=== PATIENT | male | born 1950 | race Caucasian/White ===

== ENCOUNTER 2016-06-29 12:58 | Emergency (ER) | payer OTHER ==
[~2016-06-29] VITALS: Ht 170.2 cm; Wt 72.0 kg
[~2016-06-29 12:58] MED LIST: HYDR-5688 PO; MELA3TAB12 PO
[2016-06-29 13:09] VITALS: TEMP 36.9; Ht 170.2 cm; Wt 72.0 kg
[2016-06-29] MEDS ORDERED: IBUPROFEN 600 MG TAB PO STA (13:39)
--- NOTE | 2016-06-29 14:04 | EMERGENCY ROOM VISIT NOTE ---
History First contact with patient: 13:10 Chief Complaint: FALL Stated Complaint: R HIP INJURY FROM FALL THIS MORNING History of Present Illness The patient is a 66 year old male who presents to the Emergency Room with complaints of right hip pain. The patient was at home shoveling snow when he slipped and fell on the ice. He is not certain how he fell but believes he hit the lateral aspect of the right hip. The patient states he did not have any pain prior to the fall. He is able to ambulate with moderate pain. He rates his discomfort a 6/10. He denies striking his head or having loss of consciousness. He denies any nausea or vomiting. He denies any loss of bowel or bladder control, saddle anesthesia, numbness, or weakness in the lower extremities. He denies any low back pain. Review of Systems A 10 system review of systems was completed with positives and pertinent negatives listed in the HPI. Past Medical/Surgical History Medical Problems: (1) Chronic hepatitis (2) Hepatitis C carrier (3) pneumomediastinum (4) Recurrent sinusitis Social History Smoking Status: Never Smoker Alcohol Use: none Marital Status: single Occupation Status: employed Current/Historical Medications No Active Prescriptions or Reported Meds Allergies Coded Allergies: No Known Allergies (Unverified , 06/29/16) Physical Exam Vital Signs Date Time Temp Pulse Resp B/P Pulse Ox O2 Delivery O2 Flow Rate FiO2 06/29/16 14:33 92 20 138/79 96 Room Air 06/29/16 13:09 36.9 101 18 148/77 99 Room Air Physical Exam VITALS: Vitals are noted on the nurse's note and reviewed by myself. Vital signs stable. GENERAL:This is a 66 year old male, in no acute distress, nondiaphoretic, well- developed well-nourished. SKIN: The skin was without rashes, erythema, edema, or bruising. There is no tenting of the skin. Capillary reflex less than 2 seconds. HEAD: Normocephalic atraumatic. EARS: External ears are normal in appearance. EYES: Pupils equal round and reactive to light and accommodation. Conjunctivae without injection, sclerae without icterus. Extraocular movements intact. NOSE: Patent, turbinates without inflammation or discharge. MOUTH: Mucous membranes moist. Tonsils are not enlarged. Pharynx without erythema or exudate. Uvula midline. Airway patent. Tongue does not deviate. NECK: Supple without nuchal rigidity. No JVD. HEART: Regular rate and rhythm without murmurs gallops or rubs. LUNGS: Clear to auscultation bilaterally without wheezes, rales or rhonchi. No retractions or accessory muscle use. ABDOMEN: Positive bowel sounds x 4. Soft, nontender, without masses or organomegaly. MUSCULOSKELETAL: No muscle atrophy, erythema, or edema noted. Full range of motion in all extremities. There is mild tenderness to palpation to the right anterolateral hip. Normal gait. Strength 5/5 throughout. NEURO: Patient was alert and oriented to person place and time. Normal sensation to light and sharp touch. Deep tendon reflexes 2+ throughout. No focal neurological deficits. Medical Decision & Procedures ER Provider Diagnostic Interpretation: [~ rep ct add3]] RIGHT FEMUR 5 VIEWS ROUTINE CLINICAL HISTORY: Right leg pain trauma COMPARISON: None. DISCUSSION: No fractures or dislocations are visualized. There is a subtle nonaggressive area of medullary sclerosis involving the medial distal femur. IMPRESSION: No acute fractures or dislocations identified. PELVIS 1 OR 2 VIEW ROUTINE CLINICAL HISTORY: Pelvic pain status post trauma COMPARISON STUDY: 05/12/2011 FINDINGS: There is no SI joint diastases. There is no symphysis diastases. No acute fractures are visualized. There are mild osteoarthritic changes. Calcifications/ossification projected over the greater trochanter the left hip is felt to be chronic. IMPRESSION: No acute fractures or dislocations identified. Medications Administered Medications (Trade) Dose Ordered Sig/Yahir Route Start Time Stop Time Status Last Admin Dose Admin Ibuprofen (Motrin Tab) 600 mg NOW STAT PO 06/29/16 13:39 06/29/16 13:41 DC 06/29/16 13:44 600 MG ED Course The patient was seen and examined. Previous visits were reviewed. Imaging was obtained as above. There is no evidence for hip fracture or pelvic fracture. The patient may have a hip sprain or hip contusion. He should follow up with orthopedics for further evaluation and management. He should return with worsening symptoms. The patient was also seen and examined by who agrees with the assessment and treatment plan. Medical Decision The differential diagnosis includes fracture, sprain, strain, arthritis, among others. Impression Primary Impression: Fall Additional Impression: Strain of right hip Departure Information Dispostion Home / Self-Care Condition GOOD Prescriptions No Active Prescriptions or Reported Meds Referrals Jake Patrick III, M.D. (PCP) Ruperto Enamorado D.O. Patient Instructions ED Contusion Hip, ED Sprain Hip, [facility] Additional Instructions Ibuprofen 600 mg every 6-8 hours for the next 3-5 days Contact orthopedics to schedule a follow-up appointment for further evaluation and management of your hips Return to the emergency Department with any worsening symptoms Problem Qualifiers Primary Impression: Fall Encounter type: initial encounter Qualified Codes: W19.XXXA - Unspecified fall, initial encounter Additional Impression: Strain of right hip Encounter type: initial encounter Qualified Codes: S76.011A - Strain of muscle, fascia and tendon of right hip, initial encounter
--- NOTE | 2016-06-29 14:07 | DIAGNOSTIC IMAGING REPORT ---
RIGHT FEMUR 5 VIEWS ROUTINE CLINICAL HISTORY: Right leg pain trauma COMPARISON: None. DISCUSSION: No fractures or dislocations are visualized. There is a subtle nonaggressive area of medullary sclerosis involving the medial distal femur. IMPRESSION: No acute fractures or dislocations identified. Electronically signed by: Todd White M.D. 06/29/2016 2:05 PM Dictated Date/Time: 06/29/2016 2:04 PM
--- NOTE | 2016-06-29 14:08 | DIAGNOSTIC IMAGING REPORT ---
PELVIS 1 OR 2 VIEW ROUTINE CLINICAL HISTORY: Pelvic pain status post trauma COMPARISON STUDY: 05/12/2011 FINDINGS: There is no SI joint diastases. There is no symphysis diastases. No acute fractures are visualized. There are mild osteoarthritic changes. Calcifications/ossification projected over the greater trochanter the left hip is felt to be chronic. IMPRESSION: No acute fractures or dislocations identified. Electronically signed by: Todd White M.D. 06/29/2016 2:07 PM Dictated Date/Time: 06/29/2016 2:06 PM
[2016-06-29 14:33] VITALS: BP 138/79; PULSE 92; O2SAT 96
== END 2016-06-29 14:44 | disposition home or self-care (01) ==
LOC: C.EDB 12:59 → C.EDD 14:44
DX: S76.011A Strain of muscle, fascia and tendon of right hip, initial encounter (principal); W00.0XXA Fall on same level due to ice and snow, initial encounter; Y93.H1 Activity, digging, shoveling and raking; Y92.009 Unspecified place in unspecified non-institutional (private) residence as the place of occurrence of the external cause; Y99.8 Other external cause status

== ENCOUNTER 2017-06-25 02:59 | Emergency (ER) | payer OTHER ==
[~2017-06-25] VITALS: Ht 172.7 cm; Wt 76.4 kg
[2017-06-25 03:06] VITALS: TEMP 36.5; Ht 172.7 cm; Wt 76.4 kg
[2017-06-25] MEDS ORDERED: LIDOCAINE HCL 2% VISC SOLN 20 ML UDC PO STA (03:33)
[2017-06-25] MEDS ORDERED: ALUMINUM/MAGNESIUM SUSP 30 ML UDC PO STA (03:33)
[2017-06-25 03:39] LABS: EOS % 2.4 %; HEMATOCRIT 36.4 % (42-52); HEMOGLOBIN 13.1 g/dL (14.0-18.0); IG# 0.01 K/uL (0.00-0.02); LYMPH % 44.8 %; MEAN CELL VOLUME 95.5 fL (80-100); MEAN CORPUSCULAR HEMOGLOBIN 34.4 pg (25-34); MEAN PLATELET VOLUME 10.4 fL (7.4-10.4); MONO % 7.8 %; MONO ABS # 0.33 K/uL (0.11-0.59); NEUT % 44.8 %; PLATELET COUNT 170 K/uL (130-400); RED CELL DISTRIBUTION WIDTH CV 12.7 % (11.5-14.5); RED CELL DISTRIBUTION WIDTH SD 44.2 fL (36.4-46.3); WHITE BLOOD COUNT 4.24 K/uL (4.8-10.8)
[2017-06-25 03:50] LABS: ALBUMIN 3.6 gm/dl (3.4-5.0); ALT/SGPT 64 U/L (12-78); AST/SGOT 32 U/L (15-37); BLOOD UREA NITROGEN 22 mg/dl (7-18); CALCIUM 8.2 mg/dl (8.5-10.1); CARBON DIOXIDE 27 mmol/L (21-32); CREATININE 0.94 mg/dl (0.60-1.40); GLUCOSE 91 mg/dl (70-99); POTASSIUM 3.7 mmol/L (3.5-5.1); SODIUM 139 mmol/L (136-145)
[2017-06-25 04:15] LABS: ALKALINE PHOSPHATASE 63 U/L (45-117); CKMB 1.4 ng/ml (0.5-3.6); TOTAL PROTEIN 7.1 gm/dl (6.4-8.2)
[2017-06-25] MEDS ORDERED: NITROGLYCERIN 0.3 MG/1 TAB 100 TAB BTL SL STA (05:32)
[2017-06-25] MEDS ORDERED: NITROGLYCERIN 0.4 MG SL PER TAB CHARGE ONE (05:41)
[2017-06-25] MEDS ORDERED: NURSING VERBAL MED ORDER ONE (05:45)
[2017-06-25] MEDS ORDERED: KETOROLAC TROMETHAMINE 30 MG/ML VIAL IV STA (06:09)
[2017-06-25] MEDS ORDERED: NITROGLYCERIN 0.4 MG SL PER TAB CHARGE SL STA (06:17)
[2017-06-25] MEDS ORDERED: OPTIRAY 320 IV PRN (07:00)
--- NOTE | 2017-06-25 07:21 | DIAGNOSTIC IMAGING REPORT ---
CHEST COMBO ANGIO DISSECTION CLINICAL HISTORY: Chest pain. Assess for aortic dissection. COMPARISON STUDY: Chest CT May 10, 2011 and chest radiograph June 25, 2017. TECHNIQUE: Unenhanced and arterial phase imaging of the chest was performed. Injection of 93 cc Optiray 320 IV was uneventful. Sagittal and coronal reconstructions were viewed as well as maximal intensity projections on an independent 3-D workstation. FINDINGS: Caliber of the thoracic aorta is normal. There is no intramural hematoma or dissection within the thoracic aorta. Pulmonary arteries are suboptimally opacified to evaluate for pulmonary emboli. There is no large central pulmonary embolus. Size of the heart is at the upper limits of normal. There is no pericardial effusion. No enlarged thoracic lymph nodes are present. A calcified right paratracheal lymph node is noted. Central airways are patent. There is no consolidation to suggest pneumonia. No pneumothorax or pleural effusion is noted. Several tiny pulmonary nodules are unchanged since CT of May 10, 2011 and are benign. No new nodules are present. Upper abdomen is unremarkable with exception of a left renal cyst. A small hiatal hernia is suspected. IMPRESSION: 1. No thoracic aortic dissection. 2. No acute intrathoracic findings. Electronically signed by: Cr Miranda M.D. 06/25/2017 7:20 AM Dictated Date/Time: 06/25/2017 7:11 AM
[2017-06-25 07:44] VITALS: BP 119/72; PULSE 59; O2SAT 99
--- NOTE | 2017-06-25 09:53 | DIAGNOSTIC IMAGING REPORT ---
CHEST ONE VIEW PORTABLE CLINICAL HISTORY: Chest pain. COMPARISON STUDY: Chest radiograph May 11, 2011. FINDINGS: Lung volumes are normal. Lungs are clear. No pneumothorax or pleural effusion is noted. Cardiac size is normal. Mediastinal contours are normal. IMPRESSION: No acute cardiopulmonary findings. Electronically signed by: Cr Miranda M.D. 06/25/2017 9:52 AM Dictated Date/Time: 06/25/2017 9:51 AM
--- NOTE | 2017-06-25 23:10 | EMERGENCY ROOM VISIT NOTE ---
History Report prepared by Paulina: Vivian Hernandez Under the Supervision of: Dr. Azul Harvey D.O. First contact with patient: 03:14 Chief Complaint: CHEST PAIN Stated Complaint: CHEST PAIN Nursing Triage Summary: Patient notes chest pain that woke him out of his sleep [employer]. Patient denies SOB. Pressure pain has been going on for approx. a week. History of Present Illness The patient is a 67 year old male who presents to the Emergency Room with complaints of intermittent chest pain starting a week ago. The patient states that he thought it was heart burn, but it woke him up out of his sleep tonight an hour ago. He states that it is worse at night and seems to mainly go away during the day. He describes the pain as a pressure. The patient complains of abdominal pain. The patient denies shortness of breath, nausea, and diaphoresis. He notes that he had a stress test done in the past that was negative. Source of History: patient Onset: a week ago Position: chest Quality: pressure Timing: intermittent Modifying Factors (Worsening): other (night) Modifying Factors (Relieving): other (day) Associated Symptoms: + abdominal pain, No diaphoresis, No SOB, No nausea Review of Systems See HPI for pertinent positives & negatives. A total of 10 systems reviewed and were otherwise negative. Past Medical & Surgical Medical Problems: (1) Chronic hepatitis (2) Hepatitis C carrier (3) pneumomediastinum (4) Recurrent sinusitis Family History FH: heart attack Social History Smoking Status: Never Smoker Alcohol Use: none Marital Status: single Housing Status: lives alone Occupation Status: employed Current/Historical Medications No Active Prescriptions or Reported Meds Allergies Coded Allergies: No Known Allergies (Unverified , 06/25/17) Physical Exam Vital Signs Date Time Temp Pulse Resp B/P (MAP) Pulse Ox O2 Delivery O2 Flow Rate FiO2 06/25/17 07:44 59 18 119/72 99 06/25/17 07:18 56 06/25/17 07:02 64 18 115/68 98 Room Air 06/25/17 05:43 72 18 119/71 97 Room Air 06/25/17 04:30 117/71 06/25/17 04:29 66 17 97 06/25/17 04:01 116/66 06/25/17 03:59 65 16 98 06/25/17 03:39 114/65 06/25/17 03:29 70 17 99 06/25/17 03:12 69 06/25/17 03:06 36.5 67 18 122/72 99 Room Air 06/25/17 03:06 99 Room Air 06/25/17 03:05 122/72 Physical Exam HEENT: Head - normocephalic and atraumatic Pupils are equal, round, and reactive to light. Extraocular eye muscles are intact, and sclera are anicteric. Nose - moist nasal mucosa without discharge. Mouth - moist buccal mucosa. Oropharynx is nonerythematous and there is no tonsillar exudate or edema noted. Neck: Supple; no JVD, nuchal rigidity, cervical lymphadenopathy, or auscultated bruits. Heart: Regular rate and rhythm. There is a normal S1 and S2 with no murmurs, clicks, or gallops appreciated. Lungs: Clear to auscultation bilaterally with no wheezes, rales, or rhonchi. Abdomen: Soft, completely nontender, nondistended, with good bowel sounds. There are no palpable pulsatile masses or hepatosplenomegaly. There is no guarding, rigidity, or rebound noted. Extremities: No evidence of cyanosis, clubbing, or edema. There are easily palpable peripheral pulses. Skin: warm and dry with good turgor and no rashes. Medical Decision & Procedures ER Provider Diagnostic Interpretation: Radiology results as stated below per my review and the radiologist's interpretation: CHEST COMBO ANGIO DISSECTION CLINICAL HISTORY: Chest pain. Assess for aortic dissection. COMPARISON STUDY: Chest CT May 10, 2011 and chest radiograph June 25, 2017. TECHNIQUE: Unenhanced and arterial phase imaging of the chest was performed. Injection of 93 cc Optiray 320 IV was uneventful. Sagittal and coronal reconstructions were viewed as well as maximal intensity projections on an independent 3-D workstation. FINDINGS: Caliber of the thoracic aorta is normal. There is no intramural hematoma or dissection within the thoracic aorta. Pulmonary arteries are suboptimally opacified to evaluate for pulmonary emboli. There is no large central pulmonary embolus. Size of the heart is at the upper limits of normal. There is no pericardial effusion. No enlarged thoracic lymph nodes are present. A calcified right paratracheal lymph node is noted. Central airways are patent. There is no consolidation to suggest pneumonia. No pneumothorax or pleural effusion is noted. Several tiny pulmonary nodules are unchanged since CT of May 10, 2011 and are benign. No new nodules are present. Upper abdomen is unremarkable with exception of a left renal cyst. A small hiatal hernia is suspected. IMPRESSION: 1. No thoracic aortic dissection. 2. No acute intrathoracic findings. Electronically signed by: Cr Miranda M.D. 06/25/2017 7:20 AM Dictated Date/Time: 06/25/2017 7:11 AM CHEST X-RAY: The results were interpreted by me. No pulmonary infiltrates, no pleural effusion, and no pneumothorax. Laboratory Results 06/25/17 03:20 Red Blood Count 3.81, Mean Corpuscular Volume 95.5, Mean Corpuscular Hemoglobin 34.4, Mean Corpuscular Hemoglobin Concent 36.0, Mean Platelet Volume 10.4, Neutrophils (%) (Auto) 44.8, Lymphocytes (%) (Auto) 44.8, Monocytes (%) (Auto) 7.8, Eosinophils (%) (Auto) 2.4, Basophils (%) (Auto) 0.0, Neutrophils # (Auto) 1.90, Lymphocytes # (Auto) 1.90, Monocytes # (Auto) 0.33, Eosinophils # (Auto) 0.10, Basophils # (Auto) 0.00 06/25/17 03:20 Test 06/25/17 03:20 White Blood Count 4.24 K/uL (4.8-10.8) Red Blood Count 3.81 M/uL (4.7-6.1) Hemoglobin 13.1 g/dL (14.0-18.0) Hematocrit 36.4 % (42-52) Mean Corpuscular Volume 95.5 fL (80-100) Mean Corpuscular Hemoglobin 34.4 pg (25-34) Mean Corpuscular Hemoglobin Concent 36.0 g/dl (32-36) Platelet Count 170 K/uL (130-400) Mean Platelet Volume 10.4 fL (7.4-10.4) Neutrophils (%) (Auto) 44.8 % Lymphocytes (%) (Auto) 44.8 % Monocytes (%) (Auto) 7.8 % Eosinophils (%) (Auto) 2.4 % Basophils (%) (Auto) 0.0 % Neutrophils # (Auto) 1.90 K/uL (1.4-6.5) Lymphocytes # (Auto) 1.90 K/uL (1.2-3.4) Monocytes # (Auto) 0.33 K/uL (0.11-0.59) Eosinophils # (Auto) 0.10 K/uL (0-0.5) Basophils # (Auto) 0.00 K/uL (0-0.2) RDW Standard Deviation 44.2 fL (36.4-46.3) RDW Coefficient of Variation 12.7 % (11.5-14.5) Immature Granulocyte % (Auto) 0.2 % Immature Granulocyte # (Auto) 0.01 K/uL (0.00-0.02) Anion Gap 5.0 mmol/L (3-11) Est Creatinine Clear Calc Drug Dose 72.7 ml/min Estimated GFR () 96.2 Estimated GFR (Non- 83.0 BUN/Creatinine Ratio 23.4 (10-20) Calcium Level 8.2 mg/dl (8.5-10.1) Total Bilirubin 0.2 mg/dl (0.2-1) Aspartate Amino Transf (AST/SGOT) 32 U/L (15-37) Alanine Aminotransferase (ALT/SGPT) 64 U/L (12-78) Alkaline Phosphatase 63 U/L (45-117) Total Creatine Kinase 105 U/L (39-308) Creatine Kinase MB 1.4 ng/ml (0.5-3.6) Creatine Kinase MB Ratio 1.3 (0-3.0) Troponin I < 0.015 ng/ml (0-0.045) Total Protein 7.1 gm/dl (6.4-8.2) Albumin 3.6 gm/dl (3.4-5.0) Globulin 3.5 gm/dl (2.5-4.0) Albumin/Globulin Ratio 1.0 (0.9-2) Chemistry Specimen Hemolysis Laboratory results per my review. Medications Administered Medications (Trade) Dose Ordered Sig/Yahir Route Start Time Stop Time Status Last Admin Dose Admin Lidocaine HCl (Viscous Lidocaine 2% Soln) 10 ml NOW STAT PO 06/25/17 03:33 06/25/17 03:34 DC 06/25/17 03:33 10 ML Al Hydroxide/Mg Hydroxide (Maalox Susp) 30 ml NOW STAT PO 06/25/17 03:33 06/25/17 03:34 DC 06/25/17 03:33 30 ML Miscellaneous Information (Nursing Verbal Med Order) 1 ea ONE ONCE N/A 06/25/17 05:45 06/25/17 05:46 DC 06/25/17 05:42 1 EA Ketorolac Tromethamine (Toradol Inj) 30 mg NOW STAT IV 06/25/17 06:09 06/25/17 06:11 DC 06/25/17 06:09 30 MG Procedure 0333: Ordered Maalox Susp 30 ml, Lidocaine HCl 10 ml PO. 0532: Ordered Nitroglycerin 0.4 SL. 0609: Ordered Toradol Inj 30 mg IV. ECG Indication: chest pain Rate (beats per minute): 74 Rhythm: normal sinus Findings: no acute ischemic change, no ectopy ED Course 0327: I interpreted the patient's EKG at this time. 0328: Past medical records reviewed. The patient was evaluated in room A9B. A complete history and physical exam was performed. The patient was observing the site monitor and pulse oximeter. Labs were drawn as above. 0333: Ordered Maalox Susp 30 ml, Lidocaine HCl 10 ml PO. 0529: I reevaluated the patient and he is still having chest discomfort. The GI cocktail did nothing for him. 0532: Ordered Nitroglycerin 0.4 SL. 0603: I reevaluated the patient and he has no relief from Nitroglycerin. I am going to give Toradol and do a chest CT. the patient notices that his pain seems to worsen with deep breathing. 0609: Ordered Toradol Inj 30 mg IV. 0617: Ordered Nitroglycerin Tab 0.4 mg SL. 0729: Upon reevaluation, the patient still has no relief, but wants nothing stronger. I discussed findings and results with him. He verbalized agreement of the treatment plan. The patient was discharged home. Medical Decision The patient is a 67 year old male who presents to the Emergency Room with complaints of intermittent chest pain starting a week ago. Differential diagnoses include GERD, cardiac ischemia, aortic dissection, costochondritis, pleurisy, pneumonia. LABS: White count 4.2 Hemoglobin 13.1 BUN 22 Creatine 0.9 Normal Glucose Normal LFTs Negative Cardiac enzymes This is a 67 -year-old male patient who presents to the emergency department with episodes of chest discomfort over the past 7-10 days. The patient thought that it was heartburn. He became more concerned tonight when the chest pain woke him from sleep. He received GI cocktail here in the emergency department which gave him no relief. He also receives supplemental nitroglycerin which gave him no relief to his discomfort. The patient notes that the pain seems to worsen depending on his body position and if he takes a deep breath. He has a normal-appearing EKG and negative troponin. CT scan of the chest was negative for aortic dissection. The patient is a [place] and plates appear now and feels that this contributes to his symptoms. I've asked him to rest and take a break from his job over the next couple of days to see if that doesn't improve his symptoms. If symptoms are not improving, he should help with his PCP on Tuesday morning. If he has any worsening symptoms such as increased chest pain, shortness of breath, diaphoresis or nausea, he is to return to the emergency department immediately. Medication Reconcilliation Current Medication List: was personally reviewed by me Blood Pressure Screening Patient's blood pressure: Normal blood pressure Blood pressure disposition: Did not require urgent referral Impression Primary Impression: Substernal chest pain Scribe Attestation The scribe's documentation has been prepared under my direction and personally reviewed by me in its entirety. I confirm that the note above accurately reflects all work, treatment, procedures, and medical decision making performed by me. Departure Information Dispostion Home / Self-Care Prescriptions No Active Prescriptions or Reported Meds Referrals Jake Patrick III, M.D. (PCP) Forms Call Back Authorization, HOME CARE DOCUMENTATION FORM, IMPORTANT VISIT INFORMATION Patient Instructions My [facility] Additional Instructions Rest. Limit strenuous activity. Take advil - 600mg every 6 hours with food for pain Return to the ER for worsening pain or shortness of breath. Follow up with PCP if pain continues
== END 2017-06-25 07:45 | disposition home or self-care (01) ==
LOC: C.EDB 03:00 → C.EDA 07:45
DX: R07.2 Precordial pain (principal); B18.2 Chronic viral hepatitis C; J32.9 Chronic sinusitis, unspecified; Z82.49 Family history of ischemic heart disease and other diseases of the circulatory system